=== PATIENT | female | born 1960 | race Caucasian/White ===

== ENCOUNTER 2017-11-17 16:40 | Emergency (ER) | payer BC ==
[~2017-11-17] VITALS: Ht 160 cm; Wt 86.2 kg
[2017-11-17 16:51] VITALS: BP_SYST 118
[2017-11-17 17:42] VITALS: BP_SYST 110
== END 2017-11-17 17:41 | disposition home or self-care (01) ==
LOC: SED 16:40
DX: F41.9 Anxiety disorder, unspecified (principal)
CPT/HCPCS: 93005; 99283